=== PATIENT | male | born 2000 | race Caucasian/White ===

== ENCOUNTER 2021-01-12 10:58 | Outpatient (CLI) | payer OTHER ==
[~2021-01-12 10:58] MED LIST: GADOTERATE MEGLUMINE 7.5 MMOL/15 ML VIAL IV ONE
[2021-01-12] MEDS ORDERED: GADOTERATE MEGLUMINE 7.5 MMOL/15 ML VIAL IV ONE (11:17)
== END 2021-01-13 17:30 | disposition home or self-care (01) ==
LOC: SMI 10:58
PROVIDERS: ATTEND Pediatrics
DX: M62.552 Muscle wasting and atrophy, not elsewhere classified, left thigh (principal); G58.7 Mononeuritis multiplex
CPT/HCPCS: 72158; 72197; A9575